=== PATIENT | male | born 1940 | race Caucasian/White ===

== ENCOUNTER → 2018-04-07 | Outpatient (CLI) | payer MEDICARE, OTHER ==
[~2018-04-07] MED LIST: ASPIRIN81 M1 PO; CHLORTRIMETON; DAILY VALUE1 EACH PO; DIOVAN HCT 80-1 EACH PO; IOPAMIDOL 370 MG/ML 200 ML INFUS..BTL INJ ONE; NITROGLYCERIN 0.4 MG SUBL ONE; SODIUM CHLORIDE 0.9% 100 ML 100 ML ONE; SUDAFED30 MG
[2018-04-07 09:46] LABS: BLOOD UREA NITROGEN 16 mg/dL (7-26); BUN/CREATININE RATIO 15 (6-25); CREATININE, SERUM 1.06 mg/dL (0.72-1.25); EST GLOMERULAR FILTRATION RATE > 60 ML/MIN (60-)
--- NOTE | 2018-04-09 10:51 | Diagnostic Imaging Report ---
EXAM: CTA HEART WITH CONTRAST DATE: 04/07/2018 9:03 AM INDICATION: COMPARISON: None TECHNIQUE: Contrast-enhanced CT of the coronary arteries was obtained with retrospective electrocardiogram gating. Images were reformatted at 0.5 mm intervals and sent to the [employer] workstation for interpretation of both systolic and diastolic phases. Heart rate during CTA 55. 0.4 mg nitroglycerin given. Contrast: 100 mL Isovue-370 Total DLP: 1570 mGy*cm Est. Eff. Dose DLP x 0.015 x size factor mSv (CTDIvol has been reviewed and is below limits set by [facility]). Appropriate CT dose reduction techniques were utilized. Study quality: Adequate FINDINGS: Coronary Arteries: Coronary artery calcium score. No calcifications identified. Agatston score 0. This patient has a right dominant system, with normal origins of the coronary arteries. Left Main coronary artery: No atherosclerotic disease or significant stenosis. Left anterior descending artery: No atherosclerotic disease or significant stenosis. Diagonal branches: No atherosclerotic disease or significant stenosis. Left circumflex artery: No atherosclerotic disease or significant stenosis. Obtuse marginal branches: No atherosclerotic disease or significant stenosis. Right coronary artery: No atherosclerotic disease or significant stenosis. PDA: No atherosclerotic disease or significant stenosis. Ramus intermedius: Absent Cardiac findings: Pacemaker: None. Artificial valve: None. Intracardiac?closure device: None Ascending Aorta: 32 mm. Pulmonary Trunk: 27 mm. Partially Visualized Mediastinum: No acute findings. Partially Visualized Lungs: Motion artifact. Atelectasis left lung base. Other findings: Mild aortic valvular and mitral annular calcifications. IMPRESSION: No coronary artery calcifications. No calcified or noncalcified plaque or significant coronary artery narrowing identified. Signed by: Dr. Garett Benz MD on 04/09/2018 10:47 AM
== END ==
LOC: CT 08:53
PROVIDERS: ATTEND Internal Medicine Interventional Cardiology
DX: I25.10 Atherosclerotic heart disease of native coronary artery without angina pectoris (principal)
CPT/HCPCS: 36415; 75574; 82565; 84520; Q9967

== ENCOUNTER → 2020-01-04 | Outpatient (CLI) | payer MEDICARE, OTHER ==
[~2020-01-04] MED LIST changes: -IOPAMIDOL 370 MG/ML 200 ML INFUS..BTL INJ ONE; -NITROGLYCERIN 0.4 MG SUBL ONE; -SODIUM CHLORIDE 0.9% 100 ML 100 ML ONE
--- NOTE | 2020-01-07 11:31 | Diagnostic Imaging Report ---
CT of the chest, without contrast. History: Abnormal chest radiograph. Comparison: No prior chest radiograph is available for comparison. CTA coronary from 04/07/2018.. Technique: Multidetector CT scanning of the chest was performed from the level of the apices to the upper abdomen without contrast. Coronal and sagittal multiplanar reformations were obtained. RADIATION DOSE: Total DLP: 548.34 mGy*cm Dose modulation, iterative reconstruction, and/or weight based adjustment of the mA/kV was utilized to reduce the radiation dose to as low as reasonably achievable. FINDINGS: The thyroid and remaining visualized structures within the base of the neck demonstrate no significant abnormalities. The thoracic aorta is normal course and caliber with atherosclerotic calcifications. The heart is not enlarged. Calcification noted of the aortic and mitral valves. No abnormal pericardial fluid is present. Normal-sized mediastinal lymph nodes noted. There is no abnormal axillary, mediastinal, or hilar lymph node enlargement. The trachea and proximal airways are patent. There is a 7 mm pulmonary nodule identified within the superior segment of the right lower lobe (axial image 60). There is a minimal amount of adjacent/surrounding groundglass opacity. Scattered areas of subsegmental atelectasis/scarring noted, most prominent within the left lung base. There is no evidence for consolidation, pneumothorax, or pleural effusion. The liver appears diffusely decreased in attenuation compatible with fatty infiltration. A small calcified gallstone is identified within the gallbladder. The remaining visualized upper abdominal contents demonstrate no significant abnormalities. The osseous structures demonstrate no evidence for acute fracture or destructive process. The extrathoracic soft tissues are unremarkable. IMPRESSION: 1. Single 7 mm pulmonary nodule identified within the right lower lobe. Recommend follow-up examination in 6-12 months to assess for stability. 2. Left basilar atelectasis/scarring. No evidence for focal consolidation. 3. Hepatic steatosis. 4. Cholelithiasis. Signed by: Dr. Jayce Holguin MD on 01/07/2020 11:28 AM
== END ==
LOC: CT 13:28
PROVIDERS: ATTEND Family Medicine
DX: R91.8 Other nonspecific abnormal finding of lung field (principal)
CPT/HCPCS: 71250

== ENCOUNTER → 2021-06-16 | Outpatient (CLI) | payer MEDICARE, OTHER | LOC: CT 11:34 | PROVIDERS: ATTEND Surgery | DX: R91.8 Other nonspecific abnormal finding of lung field (principal) | CPT/HCPCS: 71250 ==

== ENCOUNTER → 2022-10-27 | Outpatient (CLI) | payer MEDICARE, OTHER ==
[~2022-10-27] MED LIST changes: +GADOBENATE DIMEGLUMINE 1 ML IV ONE
[2022-10-27 13:24] LABS: CREATININE, SERUM 1.16 mg/dL (0.72-1.25)
== END ==
LOC: MRI 12:13
PROVIDERS: ATTEND Family Medicine
DX: H53.413 Scotoma involving central area, bilateral (principal); H46.9 Unspecified optic neuritis
CPT/HCPCS: 36415; 70543; 70553; 82565; 84520; A9577